=== PATIENT | male | born 1970 | race African-American/Black ===

== ENCOUNTER 2016-10-30 23:48 | Emergency (ER) ==
[~2016-10-30] VITALS: Ht 193 cm; Wt 97.5 kg
[2016-10-30 23:49] VITALS: BP 125/70
[2016-10-31] MEDS ORDERED: IBUP600T26 PO (16:03)
[2016-10-31] MEDS ORDERED: NORCOTAB PO (16:03)
[2016-10-31] MEDS ORDERED: ROBA500T PO (16:03)
== END 2016-10-31 03:06 | disposition left against medical advice (07) ==
LOC: M ED 10-31 02:11
DX: M54.9 Dorsalgia, unspecified (principal); Z53.21 Procedure and treatment not carried out due to patient leaving prior to being seen by health care provider

== ENCOUNTER 2016-10-31 12:32 | Emergency (ER) | payer OTHER ==
[~2016-10-31] VITALS: Ht 193 cm; Wt 97.5 kg
[2016-10-31] MEDS ORDERED: IBUP600T26 PO (16:03)
[2016-10-31] MEDS ORDERED: NORCOTAB PO (16:03)
[2016-10-31] MEDS ORDERED: ROBA500T PO (16:03)
--- NOTE | 2016-10-31 16:08 | REP ---
CERVICAL SPINE X-RAYS COMPLETE: 10/31/2016. Clinical history: Trauma. Neck pain. Technique: Nine views are provided with repeat open mouth view and swimmer's projection. Findings: There are no prior studies. The open-mouth view shows the dens with normal relationship to the lateral masses of C1. The lateral view shows slight loss of lordosis. Somewhat decreased flexion and extension with overall diminished range of motion, but no instability. Cervical spondylosis at C5-6 and C6-7 with disc space narrowing and anterior osteophytes at both levels. There is some posterior osteophytes at C4-5 as well, but these are small. Posterior osteophytes at C5-6 also seen. Disc spaces less narrow at C4-5 and above. There is no compression deformity of destructive lesion. The C1-2 relationships are stable on all views. There is no torticollis. Swimmer's view shows normal alignment. The foramina show encroachment on the right at C3-4, C5-6 and minimally and C6-7, while the left foramina are narrowed at C5-6 and minimally at C6-7. Impression: 1. Degenerative disc and facet changes at C5-6 and C6-7 with some foraminal encroachment at those levels on the left and at C5-6 on the right, greater than C6-7. There is also right C3-4 foraminal encroachment. 2. No compression deformity or destructive lesion. 3. Decreased range of motion, but no instability. This may reflect some spasm. For persistent neurologic abnormality or persistent pain, CT would be more sensitive for detection of radiographically occult fracture. Signed by Marciano Dias MD 10/31/2016 05:11 P
--- NOTE | 2016-10-31 16:10 | REP ---
LUMBAR SPINE COMPLETE: 10/31/2016. Clinical history: Trauma, back pain. Five views are provided. There are no prior studies. Findings: Normal lordosis is maintained. The disc space is narrowed at L5-S1 with endplate spurring and sclerosis. At L4-5, there is also some anterior osteophyte formation with some disc space narrowing without compression deformity. The L3-4 level and above maintain disc height. The lumbar vertebral bodies and lower thoracic vertebral bodies are without compression deformity or destructive lesion. Facet arthropathy at L4-5 and L5-S1 noted. There is no spondylolysis or spondylolisthesis. There has been apparent laminectomy on the right at L5. Pedicles, spinous and transverse processes intact. SI joints, sacral ala and foramina, pelvic ring and symphysis pubis intact. There are minor degenerative changes in the hips. Impression: 1. No compression deformity or destructive lesion. 2. Facet arthropathy at L4-5 and L5-S1 with disc space narrowing and sclerosis consistent with advanced spondylosis at L5-S1, moderate at L4-5. No acute finding. Signed by Marciano Dias MD 10/31/2016 05:11 P
[2016-10-31 16:15] VITALS: BP 134/86
== END 2016-10-31 16:21 | disposition home or self-care (01) ==
LOC: M ED 15:05
DX: S10.93XA Contusion of unspecified part of neck, initial encounter (principal); S30.0XXA Contusion of lower back and pelvis, initial encounter; W01.10XA Fall on same level from slipping, tripping and stumbling with subsequent striking against unspecified object, initial encounter; Y92.009 Unspecified place in unspecified non-institutional (private) residence as the place of occurrence of the external cause; Y93.9 Activity, unspecified; Y99.9 Unspecified external cause status; Z88.5 Allergy status to narcotic agent; Z88.8 Allergy status to other drugs, medicaments and biological substances; Z79.899 Other long term (current) drug therapy

== ENCOUNTER 2016-11-10 11:52 | Emergency (ER) | payer OTHER ==
[~2016-11-10] VITALS: Ht 193 cm; Wt 98.4 kg
[~2016-11-10 11:52] MED LIST: IBUP600T26 PO; NORCOTAB PO; ROBA500T PO
[2016-11-10] MEDS ORDERED: HYDR-3713 PO (14:09)
[2016-11-10] MEDS ORDERED: GUAISYP5 PO (14:09)
[2016-11-10 14:19] VITALS: BP 133/72
== END 2016-11-10 14:40 | disposition home or self-care (01) ==
LOC: M ED 13:53
DX: J06.9 Acute upper respiratory infection, unspecified (principal); B34.9 Viral infection, unspecified; Z76.0 Encounter for issue of repeat prescription

== ENCOUNTER 2017-05-26 11:43 | Emergency (ER) | payer MEDICAID, OTHER ==
[~2017-05-26] VITALS: Ht 193 cm; Wt 103.2 kg
[~2017-05-26 11:43] MED LIST changes: +GUAISYP5 PO; +HYDR-3713 PO; +IBUP-1022 PO; -IBUP600T26 PO
[2017-05-26] MEDS ORDERED: PANTOPRAZOLE 40MG INJ (PROTONIX) (C9113) IV ONE (13:45)
[2017-05-26] MEDS ORDERED: NS 1,000 ML IV ONE (13:45)
[2017-05-26] MEDS ORDERED: ONDANSETRON 4MG/2ML VIAL (J2405) IV ONE (13:45)
[2017-05-26 14:07] LABS: BASO # 0.1 10^3/uL (0.0-0.2); BASO % 0.5 % (0.0-1.0); EOS # 0.1 10^3/uL (0.0-0.50); EOS % 1.4 % (0.0-3.0); IMMATURE GRANULOCYTE % 0.3 % (0-0); LYMPH % 28.5 % (24.0-44.0); MEAN CORPUSCULAR HEMOGLOBIN 29.3 pg (27.0-33.0); MEAN CORPUSCULAR HGB CONC 33.9 g/dl (32.0-36.5); MEAN CORPUSCULAR VOLUME 86.3 fl (80.0-96.0); MONO % 9.5 % (0.0-5.0); NEUTROPHILS # 6.2 10^3/uL (1.8-7.7); NEUTROPHILS % 59.8 % (36.0-66.0); PLATELET COUNT, AUTOMATED 172 10^3/uL (150-450); RED CELL DISTRIBUTION WIDTH 14.8 % (11.5-14.5); WHITE BLOOD COUNT 10.4 10^3/uL (4.0-10.0)
--- NOTE | 2017-05-26 14:38 | REP ---
Abdominal right upper quadrant ultrasound: There is no cholelithiasis, gallbladder wall thickening or pericholecystic fluid. There is no intrahepatic or extrahepatic biliary duct dilatation. The common duct measures 4.9 mm in diameter. The hepatic parenchyma is homogeneous. No hepatic masses. The visualized portion of the pancreatic head is unremarkable. The body and tail are obscured by bowel gas. There is no right renal calculus or hydronephrosis. There is a 3.2 cm right renal upper pole mass. Consider MRI for confirmation. Impression: Right renal 3.2 cm upper pole mass. Otherwise, negative abdominal right upper quadrant ultrasound. Consider MRI for confirmation. Signed by Zack Owens MD 05/26/2017 02:29 P
[2017-05-26 15:12] LABS: ALBUMIN/GLOBULIN RATIO 1.14 (1.00-1.93); ALKALINE PHOSPHATASE 59 U/L (45-117); ALT/SGPT 26 U/L (12-78); AMYLASE 81 U/L (25-115); ANION GAP 5 MEQ/L (8-16); AST/SGOT 21 U/L (15-37); BILIRUBIN,TOTAL 0.5 MG/DL (0.2-1.0); BLOOD UREA NITROGEN 15 MG/DL (7-18); CALCIUM LEVEL 9.3 MG/DL (8.5-10.1); CARBON DIOXIDE LEVEL 29 MEQ/L (21-32); CHLORIDE LEVEL 107 MEQ/L (98-107); CREATININE FOR GFR 0.96 MG/DL (0.70-1.30); GLOMERULAR FILTRATION RATE > 60.0 (>60); GLUCOSE, FASTING 73 MG/DL (70-105); POTASSIUM SERUM 4.3 MEQ/L (3.5-5.1); SODIUM LEVEL 141 MEQ/L (136-145); TOTAL PROTEIN 7.5 GM/DL (6.4-8.2)
[2017-05-26] MEDS ORDERED: PANTOPRAZOLE 40MG TAB (PROTONIX) PO ONE (16:00)
[2017-05-26] MEDS ORDERED: NORCO, ANEXSIA 5/325MG TABLET (HYDROcodone/ACETAMINOPHEN) PO ONE (16:15)
--- NOTE | 2017-05-26 17:00 | REP ---
CT abdomen and pelvis without IV or oral contrast: History: Abdominal pain. CT findings: Preliminary digital service observer radiograph demonstrates an unremarkable bowel gas pattern. The lung bases are clear. The liver and the spleen are normal in size and homogeneous in texture. No adrenal lesion is seen. Gallbladder is unremarkable. No pancreatic lesion is appreciated. There is a low-density area in the lower pole of the right kidney posteriorly consistent with a cyst measuring 10 mm in greatest diameter. No hydronephrosis is seen. No intrarenal calculus is observed on either side. No retroperitoneal mass or adenopathy is seen. Normal caliber aorta is noted. A normal appendix is seen in the right lower quadrant. There is some mild diverticulosis affecting the sigmoid colon. Prostate, seminal vesicles, and urinary bladder are unremarkable. Impression: Mild left colonic diverticulosis without CT evidence of diverticulitis. Normal appendix. No urinary tract calculus seen. 1 cm cyst right kidney. Post right lumbar laminectomy changes at L5. Signed by Nash Funes MD 05/26/2017 05:33 P
[2017-05-26] MEDS ORDERED: NORCOTAB PO (17:10)
[2017-05-26] MEDS ORDERED: ZOFR4TAB3 PO (17:10)
[2017-05-26] MEDS ORDERED: PROT1TAB2 PO (17:10)
[2017-05-26 17:20] VITALS: BP 145/86
--- NOTE | 2017-05-27 06:37 | ED PDOC ---
Post-Departure Follow-Up certified letter sent to pt re formal read of ct abd/p. please obtain pcp name so we can fax for fu Dalton Castillo MD May 27, 2017 06:37
--- NOTE | 2017-05-27 06:45 | ED PDOC ---
Post-Departure Follow-Up pt needs to be referred to urology please due to ct abd/p and gb us result. see both reports and help pt get into urology office. Dalton Castillo MD May 27, 2017 06:45
== END 2017-05-26 17:25 | disposition home or self-care (01) ==
LOC: M ED 11:43
DX: N28.89 Other specified disorders of kidney and ureter (principal); R10.32 Left lower quadrant pain; R10.31 Right lower quadrant pain; F17.210 Nicotine dependence, cigarettes, uncomplicated; F12.90 Cannabis use, unspecified, uncomplicated; Z91.018 Allergy to other foods; Z88.8 Allergy status to other drugs, medicaments and biological substances; Z88.5 Allergy status to narcotic agent; Z91.040 Latex allergy status

== ENCOUNTER 2018-04-05 10:55 | Emergency (ER) | payer OTHER ==
[2018-04-05] MEDS: NORCO, ANEXSIA 5/325MG TABLET (HYDROcodone/ACETAMINOPHEN) PO (13:01)
[2018-04-05] MEDS: METHOCARBAMOL 500 MG TAB PO (13:02)
== END 2018-04-05 13:02 | disposition home or self-care (01) ==
LOC: M ED 10:55
DX: M54.30 Sciatica, unspecified side (principal); R21 Rash and other nonspecific skin eruption; T48.1X5A Adverse effect of skeletal muscle relaxants [neuromuscular blocking agents], initial encounter; Z79.52 Long term (current) use of systemic steroids; Z91.018 Allergy to other foods; Z88.8 Allergy status to other drugs, medicaments and biological substances; Z88.5 Allergy status to narcotic agent; Z91.040 Latex allergy status; Z79.899 Other long term (current) drug therapy
CPT/HCPCS: 99282

== ENCOUNTER 2018-07-07 19:19 | Emergency (ER) | payer OTHER ==
[2018-07-07] MEDS: KETOROLAC 60 MG/2 ML VIAL (J1885) IM (20:17)
[2018-07-07] MEDS: diazePAM 10 MG TAB PO (20:17)
== END 2018-07-07 20:33 | disposition home or self-care (01) ==
LOC: M ED 19:19
DX: M54.9 Dorsalgia, unspecified (principal); Z91.018 Allergy to other foods; Z91.040 Latex allergy status; Z88.8 Allergy status to other drugs, medicaments and biological substances; Z88.5 Allergy status to narcotic agent
CPT/HCPCS: J1885

== ENCOUNTER 2018-07-08 10:23 | Emergency (ER) | payer OTHER ==
[2018-07-08] MEDS: ACETAMINOPHEN 325 MG TAB PO (11:08)
[2018-07-08] MEDS: METHOCARBAMOL 500 MG TAB PO (11:08)
== END 2018-07-08 12:07 | disposition home or self-care (01) ==
LOC: M ED 10:23
DX: M54.15 Radiculopathy, thoracolumbar region (principal); M54.41 Lumbago with sciatica, right side; M54.42 Lumbago with sciatica, left side; K21.9 Gastro-esophageal reflux disease without esophagitis; Z88.5 Allergy status to narcotic agent; Z88.8 Allergy status to other drugs, medicaments and biological substances; Z91.018 Allergy to other foods; Z91.040 Latex allergy status
CPT/HCPCS: 72131

== ENCOUNTER 2018-08-13 10:21 | Emergency (ER) | payer OTHER ==
[~2018-08-13] VITALS: Ht 193 cm; Wt 96.4 kg
[~2018-08-13 10:21] MED LIST changes: +CLEO300C2 PO; +CYCL10TA PO; +LIDO1SOL7 SSP; +PERC5TAB12 PO; +PRED20TA PO; +PROT1TAB2 PO; +SUCR1TAB56; +ZOFR4TAB14 PO
[2018-08-13 13:19] VITALS: BP 121/59
== END 2018-08-13 13:22 | disposition home or self-care (01) ==
LOC: M ED 10:21
DX: M51.26 Other intervertebral disc displacement, lumbar region (principal); G95.29 Other cord compression; K21.9 Gastro-esophageal reflux disease without esophagitis; Z88.5 Allergy status to narcotic agent; Z88.8 Allergy status to other drugs, medicaments and biological substances; Z91.018 Allergy to other foods; Z91.040 Latex allergy status

== ENCOUNTER 2019-01-09 14:15 | Emergency (ER) | payer OTHER ==
[~2019-01-09] VITALS: Ht 193 cm; Wt 86.3 kg
[~2019-01-09 14:15] MED LIST changes: +HYDR-3715 PO; -LIDO1SOL7 SSP; +LIDO1SOL8 SSP; -NORCOTAB PO
[2019-01-09] MEDS ORDERED: GABA-845 PO (16:17)
[2019-01-09 16:23] VITALS: BP 120/81
== END 2019-01-09 16:26 | disposition home or self-care (01) ==
LOC: M ED 14:15
DX: M54.41 Lumbago with sciatica, right side (principal); K21.9 Gastro-esophageal reflux disease without esophagitis; F12.10 Cannabis abuse, uncomplicated; Z91.018 Allergy to other foods; Z91.040 Latex allergy status; Z88.8 Allergy status to other drugs, medicaments and biological substances; Z88.5 Allergy status to narcotic agent

== ENCOUNTER → 2019-01-31 | Outpatient (REF) | payer OTHER ==
[~2019-01-31] MED LIST changes: +GABA-845 PO
== END ==
LOC: CANPREREF → M SFHCPLAZ 09:47
PROVIDERS: ATTEND Nurse Practitioner Family
DX: Z13.228 Encounter for screening for other metabolic disorders (principal); K21.9 Gastro-esophageal reflux disease without esophagitis

== ENCOUNTER 2019-09-15 10:29 | Emergency (ER) | payer OTHER ==
[~2019-09-15] VITALS: Ht 193 cm; Wt 84.7 kg
[2019-09-15 13:23] LABS: CHLAMYDIA DNA AMPLIFICATION NEGATIVE (NEGATIVE); GC DNA AMPLIFICATION NEGATIVE (NEGATIVE)
[2019-09-15 14:37] VITALS: BP 122/68
[2019-09-16 10:21] LABS: HEPATITIS B SURFACE ANTIBODY NEGATIVE (POSITIVE); HEPATITIS B SURFACE ANTIGEN NEGATIVE (NEGATIVE); HEPATITIS C VIRUS ABY INDEX < 0.0 INDEX (<0.8); HIV 1&2 SCREEN CENTAUR NEGATIVE (NEGATIVE)
== END 2019-09-15 14:39 | disposition home or self-care (01) ==
LOC: M ED 10:29
DX: Z11.3 Encounter for screening for infections with a predominantly sexual mode of transmission (principal); F17.200 Nicotine dependence, unspecified, uncomplicated; Z88.8 Allergy status to other drugs, medicaments and biological substances; Z88.5 Allergy status to narcotic agent; Z91.018 Allergy to other foods; Z91.040 Latex allergy status

== ENCOUNTER 2019-11-23 11:27 | Emergency (ER) | payer OTHER ==
[~2019-11-23] VITALS: Ht 193 cm; Wt 93.2 kg
[~2019-11-23 11:27] MED LIST changes: -LIDO1SOL8 SSP; +LIDO2SOL17 SSP
[2019-11-23] MEDS ORDERED: NS 1,000 ML IV SCH (11:31)
[2019-11-23 12:05] LABS: BASO % 0.2 % (0.0-1.0); HEMATOCRIT 44.9 % (42.0-52.0); HEMOGLOBIN 15.3 g/dl (13.5-17.5); LYMPH # 1.8 10^3/uL (1.5-5.0); LYMPH % 11.7 % (24.0-44.0); MEAN CORPUSCULAR HEMOGLOBIN 29.9 pg (27.0-33.0); MEAN CORPUSCULAR HGB CONC 34.1 g/dl (32.0-36.5); MEAN CORPUSCULAR VOLUME 87.7 fl (80.0-96.0); MONO # 1.2 10^3/uL (0.0-0.8); MONO % 7.7 % (0.0-5.0); NEUTROPHILS # 12.6 10^3/uL (1.5-8.5); PLATELET COUNT, AUTOMATED 170 10^3/uL (150-450); RED BLOOD COUNT 5.12 10^6/uL (4.30-6.10); WHITE BLOOD COUNT 15.7 10^3/uL (4.0-10.0)
--- NOTE | 2019-11-23 12:13 | REP ---
REASON: Epigastric pain. FINDINGS: KUB shows the intestinal gas pattern to be nonspecific. The organ silhouettes insofar as delineated are unremarkable. There is no evidence of free intraperitoneal air. IMPRESSION: Nonspecific. There is a moderate amount of stool seen in the colon. Electronically Signed by Trung Kingston DO 11/23/2019 01:38 P
[2019-11-23] MEDS ORDERED: POTASSIUM IODIDE PO (12:14)
[2019-11-23] MEDS ORDERED: ISOVUE-370 76% 100ML VIAL (Q9967) As Ordered ONE (12:26)
[2019-11-23] MEDS ORDERED: ONDANSETRON 4MG/2ML VIAL (J2405) IV ONE (12:30)
[2019-11-23 12:40] LABS: ALBUMIN 4.5 GM/DL (3.2-5.2); ALT/SGPT 22 U/L (12-78); BILIRUBIN,DIRECT 0.2 MG/DL (0.0-0.2); BILIRUBIN,TOTAL 0.6 MG/DL (0.2-1.0); CK-MB VALUE MASS 4.9 NG/ML (<3.6); CPK CREATINE PHOSPHOKINASE 693 U/L (39-308); LIPASE 46 U/L (73-393); MB/CK RELATIVE INDEX 0.71 (< OR =4); TROPONIN I < 0.02 NG/ML (< 0.10)
[2019-11-23] MEDS ORDERED: PANTOPRAZOLE 40MG INJ (PROTONIX) (C9113) IV ONE (12:45)
--- NOTE | 2019-11-23 13:39 | REP ---
CT ABDOMEN AND PELVIS WITH IV CONTRAST: TECHNIQUE: Axial contrast enhanced images from the lung bases to the pubic symphysis using 100 mL Isovue 370 intravenous contrast material with multiplanar reformations. Visualized lung bases demonstrate no infiltrate. The liver, gallbladder, spleen, adrenals, pancreas, and kidneys are unremarkable except for a cyst in the posterior right kidney measuring approximately 1.4 cm in diameter. There is no hydronephrosis. There is no abdominal aortic aneurysm. There is no adenopathy. There is no free air. The appendix is normal. The stomach appears somewhat thickened diffusely which may indicate gastritis. No other bowel wall thickening is seen. There is mild free fluid in the pelvis. No pelvic mass is seen. Urinary bladder is not well distended and not well evaluated. IMPRESSION: Stomach appears diffusely thickened suggesting gastritis. There is mild free fluid in the pelvis. No free air. Appendix is normal. Right renal cyst. Electronically Signed by Zack Mesa MD 11/23/2019 02:23 P
[2019-11-23] MEDS ORDERED: OMEP40CA97 PO (14:11)
[2019-11-23] MEDS ORDERED: CARA1TAB6 PO (14:11)
[2019-11-23 14:15] VITALS: BP 137/87
--- NOTE | 2019-11-23 19:17 | ECGEPIP ---
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
--- NOTE | 2019-11-24 14:01 | ED PDOC ---
Post-Departure Follow-Up ct abd/p faxed to [facility] for fu Dalton Castillo MD Nov 24, 2019 14:01
== END 2019-11-23 15:14 | disposition home or self-care (01) ==
LOC: EDBD 11:27 → M ED 11:27
DX: K29.70 Gastritis, unspecified, without bleeding (principal); F41.9 Anxiety disorder, unspecified; K21.9 Gastro-esophageal reflux disease without esophagitis; Z79.899 Other long term (current) drug therapy; Z88.5 Allergy status to narcotic agent; Z88.8 Allergy status to other drugs, medicaments and biological substances; Z91.018 Allergy to other foods; Z91.040 Latex allergy status
CPT/HCPCS: 74018; 74177; 80047; 80076; 82550; 82553; 83605; 83690; 85025; 93005; 93041; 96361; 96374; 96375; 99285; C9113; J2405; Q9967

== ENCOUNTER → 2019-11-24 | Outpatient (REF) | payer OTHER ==
[~2019-11-24] MED LIST changes: +CARA1TAB6 PO; +OMEP40CA97 PO; +POTASSIUM IODIDE PO
[2019-11-24 12:52] LABS: BASO # 0.1 10^3/uL (0.0-0.2); BASO % 0.4 % (0.0-1.0); EOS # 0.2 10^3/uL (0.0-0.5); EOS % 1.7 % (0.0-3.0); HEMATOCRIT 43.1 % (42.0-52.0); HEMOGLOBIN 14.7 g/dl (13.5-17.5); LYMPH # 3.2 10^3/uL (1.5-5.0); LYMPH % 27.6 % (24.0-44.0); MEAN CORPUSCULAR HEMOGLOBIN 30.6 pg (27.0-33.0); MEAN CORPUSCULAR HGB CONC 34.1 g/dl (32.0-36.5); MEAN CORPUSCULAR VOLUME 89.6 fl (80.0-96.0); MONO % 8.7 % (0.0-5.0); NEUTROPHILS # 7.2 10^3/uL (1.5-8.5); NEUTROPHILS % 61.3 % (36.0-66.0); PLATELET COUNT, AUTOMATED 162 10^3/uL (150-450); RED BLOOD COUNT 4.81 10^6/uL (4.30-6.10); WHITE BLOOD COUNT 11.8 10^3/uL (4.0-10.0)
[2019-11-24 13:10] LABS: H PYLORI QUALITATIVE IgG DETECTED (NEGATIVE)
== END ==
LOC: M SFHCPLAZ 10:59
PROVIDERS: ATTEND Physician Assistant Medical
DX: K29.00 Acute gastritis without bleeding (principal)

== ENCOUNTER 2020-05-30 21:46 | Emergency (ER) | payer OTHER ==
[~2020-05-30] VITALS: Ht 193 cm; Wt 85.8 kg
[~2020-05-30 21:46] MED LIST changes: +CYCL-707 PO; -CYCL10TA PO
--- NOTE | 2020-05-30 22:39 | REPVR ---
PROCEDURE INFORMATION: Exam: XR Right Elbow Exam date and time: 05/30/2020 10:27 PM Age: 49 years old Clinical indication: Other: Pain; Additional info: Pain and inability to move elbow TECHNIQUE: Imaging protocol: XR Right elbow. Views: 3 or more views. COMPARISON: No relevant prior studies available. FINDINGS: Bones/joints: Mild olecranon spurring with tendinous calcifications. No joint effusion of the elbow. No fracture. Soft tissues: Slight dorsal soft tissue swelling. IMPRESSION: 1. Mild olecranon spurring with slight dorsal soft tissue swelling. 2. Otherwise negative right elbow. No fractures. Electronically signed by: Blake Sims On 05/30/2020 22:39:52 PM
[2020-05-31] MEDS ORDERED: COLC1TAB13 PO (00:12)
[2020-05-31] MEDS ORDERED: PRED20TA PO (00:12)
[2020-05-31] MEDS ORDERED: COLCHICINE 0.6 MG TAB PO ONE (00:15)
[2020-05-31] MEDS ORDERED: predniSONE 20 MG TAB PO ONE (00:15)
[2020-05-31 00:36] VITALS: BP 138/69
== END 2020-05-31 00:36 | disposition home or self-care (01) ==
LOC: M ED 21:46
DX: M10.9 Gout, unspecified (principal); Z87.19 Personal history of other diseases of the digestive system; Z91.018 Allergy to other foods; Z88.8 Allergy status to other drugs, medicaments and biological substances; Z91.040 Latex allergy status; Z88.5 Allergy status to narcotic agent

== ENCOUNTER → 2021-01-01 | Outpatient (REF) ==
[~2021-01-01] MED LIST changes: +COLC0.6T47 PO; +GABA-283 PO; -GABA-845 PO
--- NOTE | 2021-01-01 16:06 | REPPI ---
INDICATION: DISABILITY DETERMINATION. COMPARISON: 10/31/2016 a full series TECHNIQUE: AP and lateral views FINDINGS: Vertebral body height and alignment is essentially unchanged. There is L4-5 and L5-S1 disc space narrowing which appear stable to slightly increased. There is no significant change in appearance of the facet joints or pedicles. IMPRESSION: No significant change <Electronically signed by Trung Kingston > 01/01/21 0102
== END ==
LOC: M PLAIMG 15:07
PROVIDERS: ATTEND Internal Medicine
DX: Z02.9 Encounter for administrative examinations, unspecified (principal)

== ENCOUNTER → 2021-07-26 | Outpatient (CLI) | payer OTHER ==
[~2021-07-26] MED LIST changes: +OMEP40CA4 PO; -OMEP40CA97 PO
--- NOTE | 2021-07-27 16:38 | REPVR ---
PROCEDURE INFORMATION: Exam: MR Thoracic Spine Without Contrast Exam date and time: 07/26/2021 6:50 PM Age: 50 years old Clinical indication: Pain in thoracic spine; Additional info: Dd L spine/pain in t spine/spinal stenosis lum reg TECHNIQUE: Imaging protocol: Multiplanar magnetic resonance images of the thoracic spine without intravenous contrast. COMPARISON: CT ABD/PEL W/IV CONTRAST ONLY 11/23/2019 12:24 PM FINDINGS: Vertebrae: There is increased STIR signal of the inferior aspect of T8 with mild reduction in T1 signal but no deformity of the inferior endplate. There is no CT study for correlation. Spinal cord: The spinal cord is normal. T1-T2: No significant disc disease. No significant spinal canal stenosis. T2-T3: No significant disc disease. No significant spinal canal stenosis. T3-T4: No significant disc disease. No significant spinal canal stenosis. T4-T5: No significant disc disease. No significant spinal canal stenosis. T5-T6: No significant disc disease. No significant spinal canal stenosis. T6-T7: There is right foraminal stenosis at T6-T7 on sagittal image 12 and axial image 21 appearing to reflect lateral disc osteophytic disease. T7-T8: No significant disc disease. No significant spinal canal stenosis. T8-T9: There is mild bilateral foraminal stenosis at T8-T9 which appears to reflect facet arthropathy on axial image 14. T9-T10: There is moderate bilateral foraminal stenosis at T9-T10 more obvious on the right on axial image 12 probably reflecting facet arthropathy with no disc pathology identified. T10-T11: There is mild bilateral foraminal stenosis at T10-T11 on the sagittal images appearing more severe on axial images 9 and 8. T11-T12: No significant disc disease. No significant spinal canal stenosis. Soft tissues: Unremarkable. IMPRESSION: 1. Multilevel foraminal stenosis discussed above. 2. There is increased STIR signal of the inferior aspect of T8 with mild reduction in T1 signal but no deformity of the inferior endplate. There is no CT study for correlation. Electronically signed by: Natan Reilly On 07/27/2021 16:37:35 PM
--- NOTE | 2021-07-27 17:02 | REPVR ---
PROCEDURE INFORMATION: Exam: MR Lumbar Spine Without Contrast Exam date and time: 07/26/2021 6:50 PM Age: 50 years old Clinical indication: Low back pain; Additional info: Dd L spine/pain in t spine/spinal stenosis lum reg TECHNIQUE: Imaging protocol: Multiplanar magnetic resonance images of the lumbar spine without intravenous contrast. COMPARISON: MRI-Spine, L.S. without con 08/13/2018 9:28 AM FINDINGS: Vertebrae: Unremarkable. Spinal cord: The conus medullaris is normal. L1-L2: The L1-L2 level shows no evidence of a significant posterior disc herniation.There is moderate bilateral facet arthropathy. There is no nerve root compression. L2-L3: The L2-L3 level shows no evidence of a significant posterior disc herniation.There is moderate bilateral facet arthropathy. There is mild foraminal and subarticular stenosis bilaterally. L3-L4: The L3-L4 level shows no evidence of a significant posterior disc herniation.There is moderate bilateral facet arthropathy. There is mild foraminal and moderate subarticular stenosis bilaterally. L4-L5: There has been previous right laminectomy at L4-L5. Modic type 2 signal changes seen with chronic narrowing of the disc space. There is mild central and right subarticular disc herniation with cephalad extrusion of disc material to the mid body of L4. There is mild right foraminal and subarticular stenosis. L5-S1: There is evidence of previous right laminectomy at L5-S1. There is bone on bone disc space narrowing with Modic type 2 signal change. There is right greater than left disc osteophytic spur formation intruding on the foramina and left subarticular canal. There is mild bilateral foraminal and left subarticular stenosis with moderate stenosis on the right secondary to the impinging disc osteophytic spur. Soft tissues: Unremarkable. IMPRESSION: 1. The L1-L2 level shows no evidence of a significant posterior disc herniation.There is moderate bilateral facet arthropathy. There is no nerve root compression. 2. The L2-L3 level shows no evidence of a significant posterior disc herniation.There is moderate bilateral facet arthropathy. There is mild foraminal and subarticular stenosis bilaterally. 3. The L3-L4 level shows no evidence of a significant posterior disc herniation.There is moderate bilateral facet arthropathy. There is mild foraminal and moderate subarticular stenosis bilaterally. 4. There has been previous right laminectomy at L4-L5. Modic type 2 signal changes seen with chronic narrowing of the disc space. There is mild central and right subarticular disc herniation with cephalad extrusion of disc material to the mid body of L4. There is mild right foraminal and subarticular stenosis. 5. There is evidence of previous right laminectomy at L5-S1. There is bone on bone disc space narrowing with Modic type 2 signal change. There is right greater than left disc osteophytic spur formation intruding on the foramina and left subarticular canal. There is mild bilateral foraminal and left subarticular stenosis with moderate stenosis on the right secondary to the impinging disc osteophytic spur. Electronically signed by: Natan Reilly On 07/27/2021 17:01:35 PM
== END ==
LOC: M RAD 17:45
PROVIDERS: ATTEND Physician Assistant
DX: M48.062 Spinal stenosis, lumbar region with neurogenic claudication (principal); M51.36 Other intervertebral disc degeneration, lumbar region

== ENCOUNTER 2022-02-20 13:09 | Emergency (ER) | payer OTHER ==
[~2022-02-20] VITALS: Ht 193 cm; Wt 92.8 kg
[2022-02-20] MEDS ORDERED: ACETAMINOPHEN 500 MG TAB PO ONE (16:45)
[2022-02-20] MEDS ORDERED: diazePAM 5MG TABLET PO ONE (16:45)
[2022-02-20] MEDS ORDERED: LIDOCAINE 5% (LIDODERM) PATCH TD ONE (16:45)
[2022-02-20] MEDS ORDERED: KETOROLAC 30 MG/ML 1ML VIAL IM ONE (16:45)
[2022-02-20] MEDS ORDERED: VALI5TAB PO (18:31)
[2022-02-20] MEDS ORDERED: LIDO5DIS41 TD (18:31)
[2022-02-20 18:42] VITALS: BP 123/75
[2022-02-20] MEDS ORDERED: **NOTE PATIENT COMMENT** MISC XX SCH (21:00)
== END 2022-02-20 18:42 | disposition home or self-care (01) ==
LOC: EDBD 13:09 → M ED 13:09
DX: M54.9 Dorsalgia, unspecified (principal); G89.29 Other chronic pain; V43.52XA Car driver injured in collision with other type car in traffic accident, initial encounter; Y92.410 Unspecified street and highway as the place of occurrence of the external cause; Z88.5 Allergy status to narcotic agent; Z88.8 Allergy status to other drugs, medicaments and biological substances; Z91.040 Latex allergy status; Z91.018 Allergy to other foods
CPT/HCPCS: 72125; 72128; 72131; 96372; 99284; J1885

== ENCOUNTER → 2022-03-17 | Outpatient (REF) | payer OTHER ==
[~2022-03-17] MED LIST changes: +LIDO5DIS41 TD; +VALI5TAB PO
== END ==
LOC: M SFHCPLAZ 10:37
PROVIDERS: ATTEND Nurse Practitioner Family
DX: L98.9 Disorder of the skin and subcutaneous tissue, unspecified (principal)

== ENCOUNTER 2024-04-15 10:49 | Emergency (ER) | payer OTHER ==
[~2024-04-15] VITALS: Ht 193 cm; Wt 99.1 kg
[~2024-04-15 10:49] MED LIST changes: -GABA-283 PO; +GABA-284 PO; +LIDO15SO8 SSP; -LIDO2SOL17 SSP
[2024-04-15] MEDS: ACETAMINOPHEN 500 MG TAB PO ONE (12:19)
[2024-04-15] MEDS: diazePAM 5MG TABLET PO ONE (13:58)
[2024-04-15] MEDS: KETOROLAC 30 MG/ML 1ML VIAL IM ONE (14:00)
[2024-04-15 14:36] VITALS: BP 115/76; TEMP 97.2; O2SAT 97
== END 2024-04-15 14:37 | disposition home or self-care (01) ==
LOC: EDBD 10:49 → M ED 10:49
DX: M54.50 Low back pain, unspecified (principal); M54.2 Cervicalgia; M85.89 Other specified disorders of bone density and structure, multiple sites; K21.9 Gastro-esophageal reflux disease without esophagitis; Z88.8 Allergy status to other drugs, medicaments and biological substances; Z91.040 Latex allergy status; Z91.018 Allergy to other foods; Z79.1 Long term (current) use of non-steroidal anti-inflammatories (NSAID); Z79.52 Long term (current) use of systemic steroids
CPT/HCPCS: 72125; 72128; 72131; 96372; 99284; J1885

== ENCOUNTER 2024-04-19 09:57 | Emergency (ER) | payer OTHER ==
[~2024-04-19] VITALS: Ht 193 cm; Wt 98.3 kg
[2024-04-19] MEDS: methylPREDNISolone 125MG 2ML VIAL IV ONE (12:07)
[2024-04-19] MEDS: tiZANidine 4 MG TAB PO ONE (12:07)
[2024-04-19] MEDS: KETOROLAC 30 MG/ML 1ML VIAL IV ONE (12:07)
[2024-04-19] MEDS: MORPHINE 4 MG/ML 1ML VIAL IV ONE (14:05)
[2024-04-19] MEDS ORDERED: PRED20TA PO (14:55)
[2024-04-19] MEDS ORDERED: ZANA4TAB PO (14:55)
[2024-04-19] MEDS ORDERED: IBUP-1022 PO (14:55)
[2024-04-19 15:08] VITALS: BP 141/62; TEMP 98.1; O2SAT 100
== END 2024-04-19 15:11 | disposition home or self-care (01) ==
LOC: M ED 09:57
DX: M51.17 Intervertebral disc disorders with radiculopathy, lumbosacral region (principal); M51.26 Other intervertebral disc displacement, lumbar region; M48.062 Spinal stenosis, lumbar region with neurogenic claudication; K21.9 Gastro-esophageal reflux disease without esophagitis; Z88.5 Allergy status to narcotic agent; Z88.8 Allergy status to other drugs, medicaments and biological substances; Z91.018 Allergy to other foods; Z91.040 Latex allergy status; Z79.52 Long term (current) use of systemic steroids; Z79.1 Long term (current) use of non-steroidal anti-inflammatories (NSAID)
CPT/HCPCS: 72148; 96374; 96375; 99284; J1885; J2919

== ENCOUNTER → 2024-04-28 | Outpatient (CLI) | payer OTHER ==
[~2024-04-28] MED LIST changes: +ZANA4TAB PO
[2024-04-28 14:13] LABS: BASO # 0.1 10^3/uL (0.0-0.2); BASO % 0.6 % (0.0-1.0); EOS # 0.2 10^3/uL (0.0-0.5); EOS % 1.7 % (0.0-3.0); HEMATOCRIT 42.1 % (42.0-52.0); HEMOGLOBIN 13.9 g/dl (13.5-17.5); LYMPH # 2.9 10^3/uL (1.5-5.0); LYMPH % 28.4 % (24.0-44.0); MEAN CORPUSCULAR HEMOGLOBIN 29.4 pg (27.0-33.0); MEAN CORPUSCULAR VOLUME 89.2 fl (80.0-96.0); MONO # 1.2 10^3/uL (0.0-0.8); MONO % 11.3 % (2.0-8.0); NEUTROPHILS # 5.9 10^3/uL (1.5-8.5); NEUTROPHILS % 57.1 % (36.0-66.0); PLATELET COUNT, AUTOMATED 167 10^3/uL (150-450); RED BLOOD COUNT 4.72 10^6/uL (4.30-6.10); WHITE BLOOD COUNT 10.3 10^3/uL (4.0-10.0)
[2024-04-28 14:36] LABS: ALBUMIN 4.1 G/DL (3.2-5.2); ALKALINE PHOSPHATASE 62 U/L (46-116); ALT/SGPT 48 U/L (7.0-40); AST/SGOT 29 U/L (<34); BILIRUBIN,TOTAL 0.4 MG/DL (0.3-1.2); BLOOD UREA NITROGEN 15 MG/DL (9-23); CARBON DIOXIDE LEVEL 31 MMOL/L (20-31); CHLORIDE LEVEL 108 MMOL/L (98-107); CHOLESTEROL LEVEL 227 MG/DL (<200); CHOLESTEROL RISK RATIO 3.05 (<5); CREATININE FOR GFR 1.03 MG/DL (0.70-1.30); GLOMERULAR FILTRATION RATE > 60.0 (>56); GLUCOSE, FASTING 83 MG/DL (60-100); HDL CHOLESTEROL 74.3 MG/DL (>40); LDL CHOLESTEROL 139.5 MG/DL (<100); NON-HDL-C 152.7 MG/DL; POTASSIUM SERUM 4.7 MMOL/L (3.5-5.1); SODIUM LEVEL 142 MMOL/L (136-145); TOTAL PROTEIN 7.3 G/DL (5.7-8.2); TRIGLYCERIDES LEVEL 66 MG/DL (<150)
== END ==
LOC: M PLALAB 11:10
PROVIDERS: ATTEND Nurse Practitioner Family
DX: Z13.220 Encounter for screening for lipoid disorders (principal); M47.16 Other spondylosis with myelopathy, lumbar region

== ENCOUNTER 2024-05-19 12:52 | Emergency (ER) | payer OTHER ==
[~2024-05-19] VITALS: Ht 193 cm; Wt 100.5 kg
[2024-05-19] MEDS ORDERED: MELO15TA28 (13:08)
[2024-05-19] MEDS: tiZANidine 4 MG TAB PO ONE (16:56)
[2024-05-19] MEDS: predniSONE 20 MG TAB PO ONE (16:56)
[2024-05-19] MEDS ORDERED: TIZA4CAP PO (18:35)
[2024-05-19 18:39] VITALS: BP 123/81; TEMP 96.4; O2SAT 98
== END 2024-05-19 18:40 | disposition home or self-care (01) ==
LOC: EDBD 12:52 → M ED 12:52
DX: M54.16 Radiculopathy, lumbar region (principal); M54.50 Low back pain, unspecified; K21.9 Gastro-esophageal reflux disease without esophagitis; F12.10 Cannabis abuse, uncomplicated; Z88.8 Allergy status to other drugs, medicaments and biological substances; Z91.018 Allergy to other foods; Z79.1 Long term (current) use of non-steroidal anti-inflammatories (NSAID); Z79.52 Long term (current) use of systemic steroids; Z79.899 Other long term (current) drug therapy
CPT/HCPCS: 72125; 72131; 99284; J7512

== ENCOUNTER 2025-05-14 13:04 | Emergency (ER) | payer OTHER ==
[~2025-05-14] VITALS: Ht 193 cm; Wt 100.0 kg
[~2025-05-14 13:04] MED LIST changes: -COLC0.6T47 PO; +COLC0.6T53 PO; -IBUP-1022 PO; +IBUP600T42 PO; +LIDO1ADH93 TD; -LIDO5DIS41 TD; +MELO15TA28; +TIZA4CAP PO
[2025-05-14 15:12] VITALS: TEMP 97.3
[2025-05-14] MEDS: ACETAMINOPHEN 325 MG TAB PO ONE (16:25)
[2025-05-14 16:39] LABS: PLATELET COUNT, AUTOMATED 164 10^3/uL (150-450)
[2025-05-14] MEDS ORDERED: ISOVUE-370 76% 100 ML VIAL As Ordered ONE (16:42)
[2025-05-14 17:10] LABS: ATYPICAL LYMPH 5 % (0-5); EOSINOPHILS 1 % (0-3); LYMPHOCYTES 31 % (16-44); MONOCYTES 6 % (0-5); NEUTROPHILS 57 % (28-66); PLATELET ESTIMATE NORMAL (NORMAL)
[2025-05-14 17:14] LABS: CALCIUM LEVEL 9.0 MG/DL (8.5-10.1); CARBON DIOXIDE LEVEL 30.0 MMOL/L (20-31); CHLORIDE LEVEL 105.0 MMOL/L (98-107); CREATININE FOR GFR 1.0 MG/DL (0.70-1.30); GLOMERULAR FILTRATION RATE 90.0 (>56); POTASSIUM SERUM 4.7 MMOL/L (3.5-5.1); SODIUM LEVEL 141.0 MMOL/L (136-145)
[2025-05-14 17:30] VITALS: BP 124/79
[2025-05-14 18:30] VITALS: O2SAT 98
== END 2025-05-14 18:54 | disposition home or self-care (01) ==
LOC: EDBD 13:04 → M ED 13:04
DX: S60.221A Contusion of right hand, initial encounter (principal); R91.1 Solitary pulmonary nodule; Y92.9 Unspecified place or not applicable; Y93.9 Activity, unspecified; Y99.9 Unspecified external cause status; V40.6XXA Car passenger injured in collision with pedestrian or animal in traffic accident, initial encounter; K21.9 Gastro-esophageal reflux disease without esophagitis; Z88.5 Allergy status to narcotic agent; Z88.8 Allergy status to other drugs, medicaments and biological substances; Z91.040 Latex allergy status; Z91.018 Allergy to other foods; Z79.1 Long term (current) use of non-steroidal anti-inflammatories (NSAID); Z79.899 Other long term (current) drug therapy; Z79.52 Long term (current) use of systemic steroids
CPT/HCPCS: 36415; 70450; 71260; 72125; 72128; 72131; 73030; 73130; 73564; 74177; 80047; 80048; 85025; 93041; 94760; 99284; Q9967

== ENCOUNTER 2025-05-22 10:57 | Emergency (ER) | payer OTHER ==
[~2025-05-22] VITALS: Ht 193 cm; Wt 101.2 kg
[2025-05-22 11:06] VITALS: TEMP 97.9
[2025-05-22 11:08] VITALS: BP 115/62; O2SAT 98
[2025-05-22] MEDS ORDERED: CYCL5TAB4 (11:20)
== END 2025-05-22 13:14 | disposition left against medical advice (07) ==
LOC: EDBD 10:57 → M ED 10:57
DX: Z53.21 Procedure and treatment not carried out due to patient leaving prior to being seen by health care provider (principal)

== ENCOUNTER 2025-05-26 08:58 | Emergency (ER) | payer OTHER ==
[~2025-05-26] VITALS: Ht 193 cm; Wt 101.5 kg
[~2025-05-26 08:58] MED LIST changes: +CYCL5TAB4
[2025-05-26] MEDS: KETOROLAC 30 MG/ML 1 ML VIAL IV ONE (10:06)
[2025-05-26 11:00] VITALS: BP 125/76; TEMP 97.5; O2SAT 98
[2025-05-26] MEDS ORDERED: MEDR4PAK PO (11:03)
[2025-05-26] MEDS ORDERED: METH-1165 PO (11:03)
== END 2025-05-26 11:07 | disposition home or self-care (01) ==
LOC: M ED 08:58
DX: M54.50 Low back pain, unspecified (principal); K21.9 Gastro-esophageal reflux disease without esophagitis; F17.210 Nicotine dependence, cigarettes, uncomplicated; Z88.5 Allergy status to narcotic agent; Z88.8 Allergy status to other drugs, medicaments and biological substances; Z91.018 Allergy to other foods; Z91.040 Latex allergy status; Z79.1 Long term (current) use of non-steroidal anti-inflammatories (NSAID); Z79.899 Other long term (current) drug therapy; Z79.52 Long term (current) use of systemic steroids
CPT/HCPCS: 96374; 96375; 99284; J1100; J1885